=== PATIENT | male | born 1955 | race Caucasian/White ===

== ENCOUNTER 2017-11-07 08:51 | Emergency (ER) | payer OTHER ==
[2017-11-07 09:18] VITALS: O2SAT 99
[2017-11-07] MEDS ORDERED: Sodium Chloride 0.9% 1,000 ML IV ONE (09:36)
[2017-11-07] MEDS ORDERED: Sodium Chloride 0.9% 1,000 ML ONE (09:43)
--- NOTE | 2017-11-07 09:53 | RAD ---
HISTORY: SOB COMPARISON: Chest radiograph dated 02/08/2016. TECHNIQUE: Chest PA and lateral FINDINGS: LUNGS: No active pulmonary disease. PLEURA: No significant pleural effusion identified. No pneumothorax apparent. CARDIOVASCULAR: Normal. OSSEOUS STRUCTURES: Unchanged. VISUALIZED UPPER ABDOMEN: Normal. OTHER FINDINGS: None. IMPRESSION: No active disease.
[2017-11-07 10:11] LABS: BASO % 0.8 % (0.0-2.0); EOS % 0.6 % (0.0-4.0); HEMOGLOBIN 14.8 g/dL (12.0-18.0); LYMPH # 1.3 K/uL (1.0-4.3); LYMPH % 26.4 % (20.0-40.0); MEAN CELL VOLUME 86.8 fL (80.0-94.0); MEAN CORPUSCULAR HEMOGLOBIN 29.4 pg (27.0-31.0); MEAN CORPUSCULAR HGB CONC 33.9 g/dL (33.0-37.0); MEAN PLATELET VOLUME 8.9 fL (7.2-11.7); MONO # 0.8 K/uL (0.0-0.8); MONO % 16.3 % (0.0-10.0); NEUT # 2.8 K/uL (1.8-7.0); NEUT % 55.9 % (50.0-75.0); NRBC % 0.1 % (0.0-2.0); RBC 5.03 Mil/uL (4.40-5.90); RED CELL DISTRIBUTION WIDTH 14.3 % (11.5-14.5)
[2017-11-07 10:12] LABS: SQUAMOUS EPITHIAL < 1 /hpf (0-5); URINE BILIRUBIN NEGATIVE (NEGATIVE); URINE BLOOD NEGATIVE (NEGATIVE); URINE CLARITY Clear (Clear); URINE COLOR Yellow (YELLOW); URINE GLUCOSE (UA) NORMAL (Normal); URINE LEUKOCYTE ESTERASE NEG Leu/uL (Negative); URINE PROTEIN NEGATIVE (NEGATIVE); URINE UROBILINOGEN NORMAL mg/dL (0.2-1.0)
[2017-11-07 10:23] LABS: ALB/GLOB RATIO 1.2 (1.0-2.1); ALBUMIN 3.7 g/dL (3.5-5.0); ALT/SGPT 50 U/L (21-72); AST/SGOT 55 U/L (17-59); BLOOD UREA NITROGEN 15 mg/dL (9-20); CALCIUM 8.5 mg/dl (8.6-10.4); GFR AFRICAN-AMERICAN > 60; GFR NON-AFRICAN AMERICAN > 60; LIPASE 303 U/L (23-300)
--- NOTE | 2017-11-07 10:30 | C.PDOC ---
History Of Present Illness 62-year-old male, presents to the emergency department with complaints of diarrhea and loss of appetite x2-3 days. Associated symptoms include cough and congestion. Patient denies nausea/vomiting, fevers or chills. No other complaints at this time. Time Seen by Provider: 11/07/17 09:13 Chief Complaint (Nursing): Flu-like Symptoms History Per: Patient History/Exam Limitations: no limitations Onset/Duration Of Symptoms: Days Current Symptoms Are (Timing): Still Present Severity: Moderate Recent travel outside of the [place]: No Past Medical History Reviewed: Historical Data, Nursing Documentation, Vital Signs Vital Signs: Last Vital Signs Temp 98.2 F 11/07/17 11:01 Pulse 75 11/07/17 11:01 Resp 18 11/07/17 11:01 BP 122/73 11/07/17 11:01 Pulse Ox 99 11/07/17 15:46 - Medical History PMH: No Chronic Diseases Surgical History: Appendectomy Family History: States: No Known Family Hx - Social History Hx Alcohol Use: No Hx Substance Use: No - Immunization History Hx Tetanus Toxoid Vaccination: No Hx Influenza Vaccination: No Hx Pneumococcal Vaccination: No Review Of Systems Constitutional: Negative for: Fever ENT: Positive for: Nose Congestion Cardiovascular: Negative for: Chest Pain Respiratory: Positive for: Cough. Negative for: Shortness of Breath, Sputum Gastrointestinal: Positive for: Diarrhea. Negative for: Vomiting Skin: Negative for: Rash Neurological: Negative for: Weakness, Numbness, Headache, Dizziness Physical Exam - Physical Exam Appears: Non-toxic, No Acute Distress Skin: Normal Color, Warm, Dry, No Rash Head: Normacephalic Eye(s): bilateral: PERRL Nose: Normal Oral Mucosa: Moist Lips: Normal Appearing Neck: Normal ROM Chest: Symmetrical Cardiovascular: Rhythm Regular, No Murmur Respiratory: Normal Breath Sounds, No Accessory Muscle Use Extremity: Normal ROM, No Deformity, No Swelling Neurological/Psych: Oriented x3, Normal Speech ED Course And Treatment - Laboratory Results Result Diagrams: 11/07/17 10:01 11/07/17 10:01 O2 Sat by Pulse Oximetry: 99 (RA) Pulse Ox Interpretation: Normal Disposition Counseled Patient/Family Regarding: Studies Performed, Diagnosis, Need For Followup, Rx Given - Disposition Referrals: [facility] [Outside] [facility] [Outside] Disposition: HOME/ ROUTINE Disposition Time: 13:00 Condition: STABLE Additional Instructions: Drink lots of fluids Return to ED if any increase symptoms Instructions: Flu, Adult (DC) Forms: [facility] (Yi), Work Excuse Print Language: MONEGASQUE - Clinical Impression Clinical Impression: Influenza - Scribe Statement The provider has reviewed the documentation as recorded by the Scribe (Annette Davis) All medical record entries made by the Scribe were at my direction and personally dictated by me. I have reviewed the chart and agree that the record accurately reflects my personal performance of the history, physical exam, medical decision making, and the department course for this patient. I have also personally directed, reviewed, and agree with the discharge instructions and disposition.
[2017-11-07 11:02] VITALS: BP 122/73; PULSE 75; RESP 18; TEMP 98.2
== END 2017-11-07 11:10 | disposition home or self-care (01) ==
LOC: C.ER 08:51
DX: J11.1 Influenza due to unidentified influenza virus with other respiratory manifestations (principal)
CPT/HCPCS: 71046; 80053; 81001; 83690; 85025; 87804; 96360; 99284; J7040

== ENCOUNTER 2018-09-11 14:27 | Observation (INO) | payer OTHER ==
[2018-09-11 14:39] VITALS: BMI 23.2
--- NOTE | 2018-09-11 15:09 | C.PDOC ---
History Of Present Illness This is a 63 year old male with history of Tobacco Use (1 - 1.5 PPD for 50 years) who admits to intermittent, sharp mid-sternal chest pain x 2 days. 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 He cannot determine if the pain occurs at rest or during exertion since it happens so intermittently. He described it almost like a kicking sensation. He denied any associated headache, radiation of the pain to the jaw, down the arm or towards his back, diaphoresis, or shortness of breath. He did not take anything for the pain since it last for a few seconds. Patient reports he follows up with his PMD Dr. Joseph Orellana routinely. He was seen by Cardiology last year Dr. Zeyad Avalos, who had an echo and stress test done, which were both normal. Patient denied any family history of cardiac issues, CVAs, or malignancies. <Alayna Junior - Last Filed: 09/11/18 16:57> History Per: Patient History/Exam Limitations: no limitations Onset/Duration Of Symptoms: Days, Intermittent Episodes Current Symptoms Are (Timing): Still Present Severity: Moderate Pain Scale Rating Of: 6 Quality: Sharp Associated Symptoms: denies: Nausea, Dyspnea, Diaphoresis, Syncope <Alayna Junior - Last Filed: 09/11/18 16:57> <Darren Samuels DO - Last Filed: 09/11/18 18:52> Time Seen by Provider: 09/11/18 14:59 Chief Complaint (Nursing): Chest Pain Past Medical History Vital Signs: Last Vital Signs Temp 97.5 F L 09/11/18 14:37 Pulse 46 L 09/11/18 14:37 Resp 20 09/11/18 14:37 BP 133/70 09/11/18 14:37 Pulse Ox 100 09/11/18 14:37 - Medical History PMH: No Chronic Diseases Surgical History: Appendectomy Family History: States: No Known Family Hx - Social History Hx Alcohol Use: Yes Hx Substance Use: No - Immunization History Hx Tetanus Toxoid Vaccination: No Hx Influenza Vaccination: No Hx Pneumococcal Vaccination: No <Alayna Junior - Last Filed: 09/11/18 16:57> Vital Signs: Last Vital Signs Temp 98.0 F 09/11/18 18:13 Pulse 79 09/11/18 18:13 Resp 10 L 09/11/18 18:13 BP 119/59 L 09/11/18 18:13 Pulse Ox 99 09/11/18 18:13 <Darren Samuels DO - Last Filed: 09/11/18 18:52> Review Of Systems Except As Marked, All Systems Reviewed And Found Negative. Respiratory: Negative for: Cough, Shortness of Breath, SOB with Excertion, Pleuritic Pain, Wheezing Musculoskeletal: Negative for: Shoulder Pain, Back Pain Neurological: Negative for: Headache <Alayna Junior - Last Filed: 09/11/18 16:57> Physical Exam - Physical Exam Appears: Well, Non-toxic, No Acute Distress Skin: Normal Color, Warm, Dry Head: Atraumatic, Normacephalic Cardiovascular: Rhythm Regular, No Friction Rub, No JVD, Other (distant heart sounds ) Respiratory: Normal Breath Sounds, No Rales, No Rhonchi, No Stridor, No Wheezing, No Plerual Rub Gastrointestinal/Abdominal: Normal Exam, Bowel Sounds, Soft, No Tenderness Extremity: Left: No Pedal Edema, Right: No Pedal Edema Pulses: Left Radial: Normal, Right Radial: Normal Neurological/Psych: Oriented x3, Normal Speech, Normal Cognition <Alayna Junior - Last Filed: 09/11/18 16:57> ED Course And Treatment - Laboratory Results Result Diagrams: 09/11/18 15:09 09/11/18 15:09 O2 Sat by Pulse Oximetry: 100 <Alayna Junior - Last Filed: 09/11/18 16:57> - Laboratory Results Result Diagrams: 09/11/18 15:09 09/11/18 15:09 Lab Results: Troponin I < 0.0120 ng/mL (0.00-0.120) 09/11/18 15:09 Total Bilirubin 0.7 mg/dL (0.2-1.3) 09/11/18 15:09 AST 22 U/L (17-59) 09/11/18 15:09 ALT 21 U/L (21-72) D 09/11/18 15:09 Alkaline Phosphatase 63 U/L (38-126) 09/11/18 15:09 Total Protein 6.7 g/dL (6.3-8.3) 09/11/18 15:09 Albumin 4.0 g/dL (3.5-5.0) 09/11/18 15:09 Globulin 2.7 gm/dL (2.2-3.9) 09/11/18 15:09 Albumin/Globulin Ratio 1.5 (1.0-2.1) 09/11/18 15:09 <Darren Samuels DO - Last Filed: 09/11/18 18:52> Medical Decision Making Medical Decision Making: Chest Pain r/o ACS, PVCs - Labs - all electrolytes within normal limits - Troponin - negative - Manual pulse 50s, despite EKG reading HR 80s - ECHO ordered - Will reassess -- Dr. Samuels with Dr. Park - 4:55pm, who accepts the admission, requesting Cardio superintendent drilling and production consult. <Alayna Junior - Last Filed: 09/11/18 16:57> Disposition - Disposition Disposition Time: 16:57 <Alayna Junior - Last Filed: 09/11/18 16:57> - Disposition Disposition Time: 16:30 <Darren Samuels DO - Last Filed: 09/11/18 18:52> - Disposition Disposition: HOSPITALIZED Condition: STABLE - Clinical Impression Clinical Impression: Chest pain - PA / BIAS CUTTER HELPER / Resident Statement SUSANA has reviewed & agrees with the documentation as recorded. SUSANA has examined the patient and agrees with the treatment plan. <Darren Samuels DO - Last Filed: 09/11/18 18:52>
[2018-09-11 15:12] LABS: BASO # 0.1 K/uL (0.0-0.2); BASO % 0.9 % (0.0-2.0); EOS # 0.1 K/uL (0.0-0.7); EOS % 0.9 % (0.0-4.0); HEMOGLOBIN 14.4 g/dL (12.0-18.0); LYMPH # 2.2 K/uL (1.0-4.3); LYMPH % 29.5 % (20.0-40.0); MEAN CORPUSCULAR HEMOGLOBIN 29.7 pg (27.0-31.0); MEAN PLATELET VOLUME 9.6 fL (7.2-11.7); MONO # 0.7 K/uL (0.0-0.8); NEUT # 4.4 K/uL (1.8-7.0); NEUT % 59.7 % (50.0-75.0); NRBC % 0.1 % (0.0-2.0); RBC 4.85 Mil/uL (4.40-5.90); WHITE BLOOD COUNT 7.3 K/uL (4.8-10.8)
[2018-09-11 15:15] LABS: MEAN CELL VOLUME 90.1 fL (80.0-94.0)
[2018-09-11 15:34] LABS: ALB/GLOB RATIO 1.5 (1.0-2.1); ALT/SGPT 21 U/L (21-72); AST/SGOT 22 U/L (17-59); BLOOD UREA NITROGEN 16 mg/dL (9-20); CALCIUM 9.2 mg/dl (8.6-10.4); GFR NON-AFRICAN AMERICAN > 60
--- NOTE | 2018-09-11 16:01 | RAD ---
Date of service: 09/11/2018 PROCEDURE: CHEST RADIOGRAPH, 1 VIEW HISTORY: Chest pain COMPARISON: 11/07/2017. FINDINGS: LUNGS: The lungs are well inflated and clear. PLEURA: No pneumothorax or pleural effusion. CARDIOVASCULAR: The heart is normal in size. No aortic atherosclerotic calcifications present. OSSEOUS STRUCTURES: Within normal limits for the patient's age. VISUALIZED UPPER ABDOMEN: Normal. OTHER FINDINGS: None. IMPRESSION: No active pulmonary disease.
[2018-09-11 20:05] VITALS: RESP 20
--- NOTE | 2018-09-11 20:17 | CP.PCM.PN ---
Subjective - Date & Time of Evaluation Date of Evaluation: 09/11/18 Time of Evaluation: 19:20 - Subjective Subjective: H&P dictated #[id number] Objective - Vital Signs/Intake and Output Vital Signs (last 24 hours): Temp Pulse Resp BP Pulse Ox 98 F 67 20 119/80 98 09/11/18 20:04 09/11/18 20:04 09/11/18 20:04 09/11/18 20:04 09/11/18 20:04 - Medications Medications: Current Medications Pneumococcal Polyvalent Vaccine (Pneumovax 23 Vaccine) 0.5 ml IM .ONCE ONE Stop: 09/12/18 10:01 - Labs Labs: 09/11/18 15:09 09/11/18 15:09
--- NOTE | 2018-09-12 06:13 | HP ---
CHIEF COMPLAINT: Left-sided intermittent chest pain occurring over the past two days, getting worse today. HISTORY OF PRESENT ILLNESS: Mr. Reynoso is a 63-year-old male with no significant past medical history. Not on any current medications. Has been following up with Dr. Joseph Orellana as a primary care physician who sees for routine physicals and also was seen by Dr. Avalos, veterinarian epidemiologist. Underwent echo and stress test done about a year ago which was normal, came in to the emergency room with 2-day history of intermittent left-sided chest pain, pulling in nature, not associated with any shortness of breath, dizziness, diaphoresis, nausea, vomiting, but sometimes this pain gets worse upon moving from side to side. Denies any other association but the chest pain was progressively getting worse which made him come to the emergency room. When I examined, he denied any headache, dizziness. Denied any chest pain at rest. Denies any nausea, vomiting, abdominal pain, diarrhea, or constipation. Denies any urinary complaint. Denies any other neurologic symptoms. All other systems reviewed and were found to be negative. PAST MEDICAL HISTORY: Denies any past medical history. PAST SURGICAL HISTORY: Underwent appendectomy many years ago. Underwent colonoscopy two years ago, was found to be having a polyp. FAMILY HISTORY: Coronary artery disease in uncle. Father at 67 years of age. Mother at age 85. PERSONAL HISTORY: He is , having two children. 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 SOCIAL HISTORY: Smokes one pack per day for almost 50 years. Drinks alcohol socially. Denies any other drug abuse. ALLERGIES: NO KNOWN DRUG ALLERGIES. MEDICATIONS: None at home. REVIEW OF SYSTEMS: As described in history of present illness. All other systems reviewed and were found to be negative. PHYSICAL EXAMINATION: GENERAL: A middle-aged male lying in bed, in no acute distress. VITAL SIGNS: Blood pressure 119/80, pulse 67, respirations 20, temperature 98 degrees Fahrenheit, O2 sat 98% on 2 L nasal cannula. HEENT: Pupils equal, round, reacting to light and accommodation. Extraocular muscles intact. No icterus. No pallor. No oral thrush. No pharyngeal congestion. NECK: Supple. No JVD. LUNGS: Bilateral vesicular breath sounds. No wheezing. No rhonchi. CARDIOVASCULAR SYSTEM: S1, S2 present. Regular. ABDOMEN: Soft, nontender. Bowel sounds present. No guarding. No rigidity. No rebound tenderness noted. CENTRAL NERVOUS SYSTEM: Alert, awake, oriented x3. No focal deficits noted. EXTREMITIES: No pedal edema. Palpable peripheral pulses. LABORATORY DATA: Done from ED, WBC 7.3, hemoglobin 14.4, hematocrit 43.7, platelets 202. Sodium 136, potassium 4.4, chloride 105, bicarb 37, BUN 16, creatinine 0.6, glucose 109, calcium 9.2, total bilirubin 0.7, AST 22, ALT 21, alkaline phosphatase 63. Cardiac enzymes x2 negative. Total protein 6.7, albumin 4. Chest x-ray negative for any infiltrate. EKG consistent with sinus rhythm with frequent PVCs at rate 80, no acute ST-T changes noted. ASSESSMENT: A middle-aged male with no significant past medical history, has been following up with Dr. Orellana as primary care physician and had seen Cardiology about a year ago, underwent echo and stress test done by Dr. Avalos which was negative as per the patient. Has history of smoking for many years, came in to the emergency room with two-day history of intermittent chest pain, pulling in nature, lasting for a few seconds, progressively getting worse and in the emergency department, the patient was found to be having abnormal electrocardiogram with multiple frequent premature ventricular contractions, and the patient is being admitted for further evaluation. 1. Chest pain in a patient with multiple risk factors. We will rule out acute coronary syndrome. Rule out coronary artery disease. 2. Abnormal electrocardiogram. PLAN: The patient is being admitted to Telemetry. We will do serial cardiac enzymes, serial EKGs. We will check echocardiogram. We will give aspirin 325 mg daily, metoprolol 25 mg p.o. b.i.d. with parameters. We will obtain Cardiology evaluation. We will add further recommendations as his clinical course progresses. Jose Martin Park MD
--- NOTE | 2018-09-12 09:33 | CP.PCM.PN ---
Subjective - Date & Time of Evaluation Date of Evaluation: 09/12/18 Time of Evaluation: 09:33 - Subjective Subjective: Progress note dictated #[id number] Objective - Vital Signs/Intake and Output Vital Signs (last 24 hours): Temp Pulse Resp BP Pulse Ox 97.6 F 59 L 20 90/52 L 99 09/12/18 07:20 09/12/18 07:20 09/12/18 07:20 09/12/18 09:31 09/12/18 07:54 - Medications Medications: Current Medications Aspirin (Aspirin) 325 mg PO DAILY [facility] Last Admin: 09/12/18 09:31 Dose: 325 mg Metoprolol Tartrate (Lopressor) 25 mg PO BID [facility] Last Admin: 09/12/18 09:31 Dose: Not Given Pneumococcal Polyvalent Vaccine (Pneumovax 23 Vaccine) 0.5 ml IM .ONCE ONE Stop: 09/12/18 10:01 Last Admin: 09/12/18 09:31 Dose: Not Given - Labs Labs: 09/11/18 15:09 09/11/18 15:09
[2018-09-12] MEDS ORDERED: Pneumococcal 23-Valent Vaccine IM ONE (10:00)
[2018-09-12] MEDS: Enoxaparin 30 mg Syringe SC SCH (11:18)
--- NOTE | 2018-09-12 12:10 | CP.PCM.CON ---
History of Present Illness - History of Present Illness History of Present Illness: CC: Chest pain HPI: 63 year old man with chest pain. Pain is located in the retrosternum. Pain is pressure like in character. Pain is occuring in the setting of muscle contraction. Pain onset is several week. He is reporting normal stress and echo with his outpatient toll line inspector in past month. Review of Systems - Review of Systems All systems: reviewed and no additional remarkable complaints except Past Patient History - Past Social History Smoking Status: Heavy Smoker > 10 Cigarettes Daily - PSYCHIATRIC Hx Substance Use: No - SURGICAL HISTORY Hx Appendectomy: Yes - ANESTHESIA Hx Anesthesia: Yes Hx Anesthesia Reactions: No Meds Allergies/Adverse Reactions: Allergies Allergy/AdvReac Type Severity Reaction Status Date / Time No Known Allergies Allergy Verified 09/11/18 14:36 - Medications Medications: Current Medications Aspirin (Aspirin) 325 mg PO DAILY [facility] Last Admin: 09/12/18 09:31 Dose: 325 mg Enoxaparin Sodium (Lovenox) 30 mg SC DAILY [facility] Last Admin: 09/12/18 11:18 Dose: Not Given Metoprolol Tartrate (Lopressor) 25 mg PO BID [facility] Last Admin: 09/12/18 09:31 Dose: Not Given Physical Exam - Constitutional Appears: Well, Non-toxic - Head Exam Head Exam: ATRAUMATIC, NORMAL INSPECTION - Eye Exam Eye Exam: PERRL. absent: Scleral icterus - ENT Exam ENT Exam: Mucous Membranes Moist, Normal External Ear Exam - Neck Exam Neck exam: Negative for: Lymphadenopathy, Thyromegaly - Respiratory Exam Respiratory Exam: Clear to Auscultation Bilateral, NORMAL BREATHING PATTERN - Cardiovascular Exam Cardiovascular Exam: REGULAR RHYTHM, RRR, +S1, +S2. absent: JVD - GI/Abdominal Exam GI & Abdominal Exam: Normal Bowel Sounds. absent: Organomegaly - Extremities Exam Extremities exam: Negative for: calf tenderness, pedal edema - Neurological Exam Neurological exam: CN II-XII Intact, Oriented x3 - Psychiatric Exam Psychiatric exam: Normal Affect, Normal Mood Results - Vital Signs Recent Vital Signs: Last Vital Signs Temp 97.6 F 09/12/18 07:20 Pulse 72 09/12/18 09:00 Resp 20 09/12/18 07:20 BP 90/52 L 09/12/18 09:31 Pulse Ox 99 09/12/18 07:54 - Labs Result Diagrams: 09/11/18 15:09 09/11/18 15:09 Labs: Laboratory Results - last 24 hr 09/11/18 09/11/18 09/11/18 15:09 15:09 19:49 WBC 7.3 RBC 4.85 Hgb 14.4 Hct 43.7 MCV 90.1 D MCH 29.7 MCHC 33.0 RDW 14.0 Plt Count 202 MPV 9.6 Neut % (Auto) 59.7 Lymph % (Auto) 29.5 [place] % (Auto) 9.0 Eos % (Auto) 0.9 Baso % (Auto) 0.9 Neut # (Auto) 4.4 Lymph # (Auto) 2.2 [place] # (Auto) 0.7 Eos # (Auto) 0.1 Baso # (Auto) 0.1 Sodium 136 Potassium 4.4 Chloride 105 Carbon Dioxide 27 Anion Gap 9 L BUN 16 Creatinine 0.6 L Est GFR ( Amer) > 60 Est GFR (Non-Af Amer) > 60 Random Glucose 109 D Calcium 9.2 Total Bilirubin 0.7 AST 22 ALT 21 D Alkaline Phosphatase 63 Troponin I < 0.0120 < 0.0120 Total Protein 6.7 Albumin 4.0 Globulin 2.7 Albumin/Globulin Ratio 1.5 09/12/18 01:28 WBC RBC Hgb Hct MCV MCH MCHC RDW Plt Count MPV Neut % (Auto) Lymph % (Auto) [place] % (Auto) Eos % (Auto) Baso % (Auto) Neut # (Auto) Lymph # (Auto) [place] # (Auto) Eos # (Auto) Baso # (Auto) Sodium Potassium Chloride Carbon Dioxide Anion Gap BUN Creatinine Est GFR ( Amer) Est GFR (Non-Af Amer) Random Glucose Calcium Total Bilirubin AST ALT Alkaline Phosphatase Troponin I < 0.0120 Total Protein Albumin Globulin Albumin/Globulin Ratio - EKG Data EKG Interpreted by: Myself EKG shows normal: Sinus rhythm Rate: Normal - Imaging and Cardiology Chest x-ray Status: Image reviewed by me Additional comment: No infiltrates or effusions 2D echo Status: Image reviewed by me Additional comment: Normal LV systolic function, normal filling pressures no valve lesions Assessment & Plan - Assessment and Plan (Free Text) Assessment: 63 year old man with chest pain I ordered serial troponin end EKG they are negative for [facility]. Chostchondritis Tylenol PRN, give rx of Nitro educate him on keeping a symptom log and follow up with regular toll line inspector HTN is chronic and stable on metorpolol Tobacco abuse we discussed for 10 minutes on the benefits of abstinence are numerous over the risks of - Date & Time Date: 09/12/18 Time: 13:04
--- NOTE | 2018-09-12 14:38 | PN ---
DATE: 09/12/2018 SUBJECTIVE: The patient is seen and examined at bedside. The patient offers no new complaints. His chest pain is better than yesterday. Denies any shortness of breath or wheezing. PHYSICAL EXAMINATION: GENERAL: Middle-aged male lying in bed, in no acute distress. VITAL SIGNS: Blood pressure 102/64, pulse 59, respirations 20, temperature 97.6 degrees Fahrenheit, O2 saturation is 99% on 2 L nasal cannula. HEENT: Pupils equal, round and reacting to light and accommodation. Extraocular muscles intact. No icterus, no pallor. No oral thrush. No pharyngeal congestion. NECK: Supple, no JVD. LUNGS: Bilateral vesicular breath sounds. No wheezing. No rhonchi. CVS: S1, S2 present, regular. ABDOMEN: Soft, nontender, bowel sounds present. No guarding, no rigidity. No rebound tenderness noted. CENTRAL NERVOUS SYSTEM: Alert, awake, oriented x3. No focal deficits noted. EXTREMITIES: No edema, palpable peripheral pulses. LABORATORY DATA: Cardiac enzymes x3 negative, echocardiogram pending. MEDICATIONS: Include aspirin 325 mg daily, Lovenox 30 mg subcu daily, Lopressor 25 mg p.o. b.i.d. ASSESSMENT AND PLAN: Middle-aged male with no significant past medical history, but underwent stress test and echocardiogram done by Cardiology about a year ago which were negative as per the patient, admitted for intermittent chest pain, acute coronary syndrome ruled out, multiple premature ventricular contractions, awaiting for echocardiogram, unable to receive Lopressor secondary to low blood pressures this morning. We will follow up with echocardiogram report after done. Follow up with Cardiology. If negative, we will plan discharging the patient home. Advised the patient to follow up with his PMD as outpatient. Jose Martin Park MD
--- NOTE | 2018-09-12 17:35 | CARD ---
APPROVED REPORT Date of service: 09/12/2018 EXAM: Two-dimensional and M-mode echocardiogram with Doppler and color Doppler. INDICATION Chest Pain DISTANT HEART SOUNDS 2D DIMENSIONS IVSd0.8 (0.7-1.1cm)LVDd4.6 (3.9-5.9cm) PWd0.6 (0.7-1.1cm)LA Vlstbm42 (18-58mL) LVDs3.3 (2.5-4.0cm)FS (%) 28.2 % LVEF (%)54.5 (>50%)LVEF (Frank's)63.56 % M-Mode DIMENSIONS Left Atrium (MM)3.26 (2.5-4.0cm)IVSd0.77 (0.7-1.1cm) Aortic Root3.30 (2.2-3.7cm)LVDd5.10 (4.0-5.6cm) Aortic Cusp Exc.2.67 (1.5-2.0cm)PWd0.69 (0.7-1.1cm) FS (%) 28 %LVDs3.65 (2.0-3.8cm) LVEF (%)54 (>50%) Mitral Valve MV E Pmacynak29.6cm/sMV A Cgieewgn40.0cm/sE/A ratio1.1 TDI Lateral E' Peak V11.19cm/sMedial E' Peak V5.32cm/sE/Lateral E'5.2 E/Medial E'11.0 LEFT VENTRICLE The left ventricle is normal size. There is normal left ventricular wall thickness. The left ventricular function is normal. The left ventricular ejection fraction is within the normal range. There is normal LV segmental wall motion. Transmitral Doppler flow pattern is normal for age. RIGHT VENTRICLE The right ventricle is normal size. The right ventricular systolic function is normal. ATRIA The left atrium size is normal. The right atrium size is normal. The interatrial septum is intact with no evidence for an atrial septal defect. AORTIC VALVE The aortic valve is normal in structure. No aortic regurgitation is present. There is no aortic valvular stenosis. MITRAL VALVE The mitral valve is normal in structure. There is no mitral valve regurgitation noted. TRICUSPID VALVE The tricuspid valve is normal in structure. There is trace tricuspid regurgitation. PULMONIC VALVE The pulmonary valve is normal in structure. GREAT VESSELS The aortic root is normal in size. The IVC is normal in size and collapses >50% with inspiration. PERICARDIAL EFFUSION There is no pericardial effusion. <Conclusion> Normal bi-ventricular function. No valvular abnormality. No pericardial effusion.
--- NOTE | 2018-09-12 18:26 | CARD ---
APPROVED REPORT Date of service: 09/11/2018 EKG Measurement Heart [id number] <Conclusion> Sinus rhythm with frequent premature ventricular complexes Otherwise normal ECG
--- NOTE | 2018-09-12 18:27 | CARD ---
APPROVED REPORT Date of service: 09/11/2018 EKG Measurement Heart [id number] <Conclusion> Sinus rhythm with frequent premature ventricular complexes Otherwise normal ECG
[2018-09-13 06:17] VITALS: O2SAT 98
[2018-09-13 07:53] VITALS: BP 94/52; PULSE 58; TEMP 97.8
[2018-09-13] MEDS: Enoxaparin 30 mg Syringe SC SCH (09:24)
--- NOTE | 2018-09-13 09:41 | CP.PCM.PN ---
Subjective - Date & Time of Evaluation Date of Evaluation: 09/13/18 Time of Evaluation: 09:41 - Subjective Subjective: Discharge summary dictated #[id number] Objective - Vital Signs/Intake and Output Vital Signs (last 24 hours): Temp Pulse Resp BP Pulse Ox 97.8 F 58 L 20 94/52 L 98 09/13/18 07:10 09/13/18 07:10 09/13/18 07:10 09/13/18 09:15 09/13/18 07:10 Intake and Output: 09/13/18 09/13/18 06:59 18:59 Intake Total 480 Balance 480 - Medications Medications: Current Medications Aspirin (Aspirin) 325 mg PO DAILY [facility] Last Admin: 09/13/18 09:24 Dose: 325 mg Enoxaparin Sodium (Lovenox) 30 mg SC DAILY [facility] Last Admin: 09/13/18 09:24 Dose: 30 mg Metoprolol Tartrate (Lopressor) 25 mg PO BID [facility] Last Admin: 09/13/18 09:15 Dose: Not Given - Labs Labs: 09/11/18 15:09 09/11/18 15:09
--- NOTE | 2018-09-14 04:25 | DS ---
DISCHARGE DIAGNOSIS: Chest pain, probably atypical chest pain from costochondritis versus abnormal electrocardiogram with multiple premature ventricular contractions. HISTORY OF PRESENT ILLNESS: Mr. Reynoso is a 63-year-old male with no significant past medical history, following up with Dr. Orellana as primary care physician and Dr. Avalos as Cardiology, underwent echo and stress test done in the last year which were normal. Came in to the emergency room with complaints of two-day history of left-sided intermittent chest pain, pulling in nature, worsening upon moving from side to side. In the ED, the patient was found to be having abnormal EKG with PVCs, and the patient is being admitted for further evaluation and management. Today, the patient is feeling much better. Denies any headache or dizziness. Denies any chest pain, shortness of breath, or wheezing. Denies any nausea, vomiting, abdominal pain, diarrhea, or constipation. Denies any urinary complaints. Denies any leg pains or leg cramps. Denies any other neurologic symptoms. All other systems reviewed and were found to be negative. PHYSICAL EXAMINATION: GENERAL: Middle-aged male, lying in bed, in no acute distress. VITAL SIGNS: Blood pressure 94/52, pulse 58, respirations 20, temperature 97.8 degrees Fahrenheit, O2 sat is 98% on room air. HEENT: Pupils equal, round, and reacting to light and accommodation. Extraocular muscles are intact. No icterus. No pallor. No oral thrush. No pharyngeal congestion. NECK: Supple. No JVD. No thyromegaly. CHEST: Moving equally bilaterally on respiration. LUNGS: Bilateral vesicular breath sounds. No wheezing. No rhonchi. CARDIOVASCULAR SYSTEM: S1 and S2 present, regular. ABDOMEN: Soft, nontender. Bowel sounds present. No guarding. No rigidity. No rebound tenderness noted. CENTRAL NERVOUS SYSTEM: Alert, awake, oriented x3. No focal deficits noted. EXTREMITIES: No edema. Palpable peripheral pulses. LABORATORY DATA: Labs done on 09/11/2018: WBC 7.3, hemoglobin 14.4, hematocrit 43.7, platelets 202. Sodium 136, potassium 4.4, chloride 105, bicarb 27, BUN 16, creatinine 0.6, glucose 109, calcium 9.2. Total bilirubin 0.7, AST 22, ALT 21, alkaline phosphatase 63. Cardiac enzymes x3 negative. Total protein 6.7, albumin 4. Echocardiogram consistent with normal biventricular function, no valvular abnormality, no pericardial effusion. HOSPITAL COURSE: The patient was admitted at the hospital to telemetry. The patient had three sets of cardiac enzymes negative. EKG, no new changes. Echocardiogram was within normal limits. The patient was evaluated by Cardiology. The patient had a stress test and echo done as outpatient by his prior manager php. The patient is ruled out for acute coronary syndrome here. The patient was cleared by Cardiology. The patient is being discharged and advised the patient to follow up with his PMD and Cardiology as an outpatient. CONDITION UPON DISCHARGE: The patient is alert, awake, oriented x3 and hemodynamically stable. DISCHARGE INSTRUCTIONS: Follow up with PMD. Follow up with Cardiology. DIET: Low-sodium, low-cholesterol 1800-calorie ADA diet. ACTIVITY: As tolerated. DISCHARGE MEDICATIONS: No medications and also refer to discharge medication reconciliation given to the patient at the time of discharge. Jose Martin Park MD
== END 2018-09-13 14:07 | disposition home or self-care (01) ==
LOC: C.ER 14:27 → C.9E 16:54 → C.6T 18:00
PROVIDERS: ADMIT Internal Medicine; ATTEND Internal Medicine
DX: R07.89 Other chest pain (principal); I49.3 Ventricular premature depolarization; R94.31 Abnormal electrocardiogram [ECG] [EKG]; I10 Essential (primary) hypertension; F17.210 Nicotine dependence, cigarettes, uncomplicated; Z71.6 Tobacco abuse counseling; Z79.899 Other long term (current) drug therapy
CPT/HCPCS: 36415; 71045; 80053; 84484; 85025; 93005; 93306; 99284; G0378; J1650